=== PATIENT | female | born 1995 | race African-American/Black ===

== ENCOUNTER 2022-06-22 21:56 | Emergency (ER) | payer MEDICAID ==
[~2022-06-22] VITALS: Ht 157.5 cm; Wt 68.9 kg
[2022-06-22] MEDS ORDERED: ALBUTEROL/IPRATROPIUM 3 ML NEB NEB ONE (22:30)
[2022-06-22] MEDS ORDERED: ALBUTEROL/IPRATROPIUM 3 ML NEB ONE (22:37)
[2022-06-22] MEDS ORDERED: PREDNISONE 20 MG TAB PO ONE (22:45)
[2022-06-22] MEDS ORDERED: PREDNISONE20 MG PO (22:56)
[2022-06-22] MEDS ORDERED: PROVENTIL HFA6.7 GM INH (22:57)
[2022-06-22] MEDS ORDERED: FLUNISOLIDE25 ML (22:59)
[2022-06-22 23:07] VITALS: BP 124/81
== END 2022-06-22 23:07 | disposition home or self-care (01) ==
LOC: FSED 22:05
DX: R07.89 Other chest pain (principal); J45.909 Unspecified asthma, uncomplicated; J33.9 Nasal polyp, unspecified; F17.210 Nicotine dependence, cigarettes, uncomplicated
CPT/HCPCS: 99282